=== PATIENT | male | born 1970 | race Caucasian/White ===

== ENCOUNTER 2024-03-03 17:48 | Emergency (ER) | payer BC, SELFPAY ==
--- NOTE | ~2024-03-03 | XR_ITS ---
EXAM: XR hip RT min 2V DATE: 03/03/2024 18:29 HISTORY: Hip pain . COMPARISON: None available. FINDINGS: Normal mineralization. No fracture or dislocation. No lytic or blastic lesion. Lumbar dege nerative disc disease. Mild bilateral hip osteoarthritis. Mild scattered pelvic enthesopathy. No eros ion or periosteal change. Soft tissues within normal limits. IMPRESSION: No acute osseous finding in the pelvis or right hip. Reviewed, dictated and finalized at location K.
[2024-03-03 17:57] VITALS: BP 128/89; PULSE 75; RESP 16; TEMP 37.3; O2SAT 97
--- NOTE | 2024-03-03 18:18 | ED.LOWEXIN ---
HPI - Extremity Injury (Lower) General Chief Complaint: Extremity Injury, Lower Stated Complaint: R HIP PAIN Time Seen by Provider: 03/03/24 18:20 Source: patient and RN notes reviewed Mode of arrival: ambulatory Limitations: no limitations History of Present Illness HPI Narrative: 53-year-old male presents with concern for right hip pain. Reports pain started after playing pickle ball. Reports the pain has worsened throughout the day. He denies any direct injury or trauma. Reports pain is worse at the end of climbing a flight of stairs. Reports pain at rest, worsening pain with weight-bearing. Reports point tenderness. complaint: hip injury Related Data Allergies Allergy/AdvReac Type Severity Reaction Status Date / Time No Known Allergies Allergy Verified 03/03/24 18:25 Review of Systems Review of Systems: CONSTITUTIONAL: Denies malaise, chills, sweats, or fever. SKIN: Denies rash or itching, open skin, laceration, abrasion, redness, warmth, swelling. MUSCULOSKELETAL: Reports right hip pain NEUROLOGIC: Denies numbness, weakness All systems reviewed & are unremarkable except as noted in HPI and below PMFSH Surgical History Surgical History History of appendectomy Family History Family History Father Malignant neoplasm of prostate Pulmonary HTN Social History Social History Smoking status: Never smoker Second hand tobacco smoke exposure: No Alcohol intake: never Substance use: never Substance use type: does not use Living arrangements: with family Occupation/Education: occupation Gender identity (if verbalized by the patient): Male Comments At time of signature, agree with nursing past medical, surgical, social and family history. There is no relevant family history pertinent to the presenting complaint Exam Narrative: GENERAL: Well-appearing, well-nourished, and in no acute distress. HEAD: Normocephalic, atraumatic. EYES: PERRLA, conjunctivae clear NECK: Supple. CHEST: Speaks in full sentences. No respiratory distress. HEART: Regular rate and rhythm. Normal and equal peripheral pulses. EXTREMITIES: Right hip has normal sensation,, decreased strength with flexion. No edema or ecchymosis. Normal sensation with sensitivity to light touch and pain. Lateral tenderness. No open wounds, no skin tenting, no devitalized tissue or atrophy, no trophic changes, no obvious deformity, alignment normal, nearby joints and structures intact. Distal pulses palpable and equal bilaterally, skin warm, dry, pink. Capillary refill less than 3 seconds. SKIN: Warm, dry, no rash, bruising, redness, warmth. NEURO: Alert and oriented x3. PSYCH: Normal mood and affect Course Course Emergency Course: Patient is aware of diagnosis, understands and agrees to treatment plan. Anticipatory guidance given. Patient agrees to follow-up as directed and is aware of reasons to seek care at the emergency department. Portions of this record may have been created with voice recognition software Level of Care: Express Care Visit Vital Signs Vital signs: Vital Signs Temperature 99.1 F 03/03/24 17:57 Pulse Rate 75 03/03/24 17:57 Respiratory Rate 16 03/03/24 17:57 Blood Pressure 128/89 03/03/24 17:57 Pulse Oximetry 97 03/03/24 17:57 Temperature 99.1 F 03/03/24 17:57 Pulse Rate 75 03/03/24 17:57 Respiratory Rate 16 03/03/24 17:57 Blood Pressure 128/89 03/03/24 17:57 Pulse Oximetry 97 03/03/24 17:57 Reviewed. MDM - Extremity Injury (Lower) MDM Narrative Medical decision making narrative: Patients injury and pain is consistent with musculoskeletal etiology. No signs of neurological or vascular compromise on exam. Compartments and tissues are soft without signs of compartment syndrome. Pain is felt appropriate
== END 2024-03-03 19:05 | disposition home or self-care (01) ==
PROVIDERS: Emergency Provider Nurse Practitioner; PCP Family Medicine
DX: M25.551 Pain in right hip (principal)
CPT/HCPCS: 73502; 99213; G0463